=== PATIENT | male | born 1955 | race Caucasian/White ===

== ENCOUNTER 2019-11-26 07:23 | Outpatient (CLI) | payer MEDICARE, SELFPAY ==
[2019-11-26 07:41] LABS: Basophils Absolute Auto 0.03 K/mm3 (0.00-0.10); Basophils Percent Auto 0.5 % (0.0-1.0); Eosinophils Absolute Auto 0.19 K/mm3 (0.02-0.50); Eosinophils Percent Auto 3.1 % (1.0-6.0); Hematocrit 47.4 % (37.0-46.0); Hemoglobin 15.9 g/dL (12.4-15.3); Immature Granulocyte Absolute 0.01 K/mm3 (0.00-0.00); Immature Granulocyte Percent A 0.2 % (0.0-0.0); Lymphocytes Percent Auto 34.8 % (18.0-42.0); Mean Corpuscular HGB Conc 33.5 g/dL (32.0-36.0); Mean Corpuscular Hemoglobin 30.2 pg (27.0-31.0); Mean Corpuscular Volume 89.9 fL (78.0-102.0); Mean Platelet Volume 9.7 fl (8.7-11.0); Monocytes Absolute Auto 0.68 K/mm3 (0.10-0.90); Monocytes Percent Auto 11.3 % (2.0-11.0); Neutrophils Percent Auto 50.1 % (50.0-70.0); Platelet Count Result 315 K/mm3 (150-420); Red Blood Count 5.27 M/mm3 (4.70-6.10); Red Cell Distribution Width 13.1 % (11.6-14.4)
[2019-11-26 07:42] LABS: Add Urine Microscopic? NO; Appearance Urine Clear (Clear); Bilirubin Urine Negative (Negative); Blood Urine Negative (Negative); Color Urine Yellow (Yellow); Glucose Urine UA Negative (Negative); Ketones Urine Negative (Negative); Leukocyte Esterase Ur Negative (Negative); Nitrate Urine Negative (Negative); Protein Urine Negative (Negative); Urobilinogen Urine 0.2 mg/dL (0.2-1.0)
[2019-11-26 09:01] LABS: Alanine Aminotransferase 44 U/L (16-63); Albumin Level 3.9 g/dL (3.4-5.0); Alkaline Phosphatase 41 U/L (46-116); Anion Gap 9.3 mmol/L (7-16); Aspartate Amino Transferase 22 U/L (15-37); Bilirubin,Total 0.8 mg/dL (0.00-1.00); Blood Urea Nitrogen 15 mg/dL (7-18); Calcium 8.9 mg/dL (8.5-10.1); Carbon Dioxide 31 mmol/L (21-32); Chloride 102 mmol/L (98-108); Cholesterol 184 mg/dL (0-200); Estimated Glomerular Filt Rate > 60; Glucose 96 mg/dL (70-99); HDL Direct 63 mg/dL (40-60); LDL Cholesterol Calculated 104 mg/dL (<130); Osmolality Calculated 286 mOsm/kg (285-295); Potassium 4.3 mmol/L (3.5-5.1); Sodium 138 mmol/L (136-145); Thyroid Stimulating Hormone 1.79 uIU/mL (0.36-3.74); Triglycerides 85 mg/dL (0-150)
== END 2019-11-26 07:24 | disposition home or self-care (01) ==
PROVIDERS: PCP Internal Medicine; Visit Provider Internal Medicine
DX: R00.1 Bradycardia, unspecified (principal); E78.5 Hyperlipidemia, unspecified
CPT/HCPCS: 36415; 80053; 80061; 81003; 84443; 85025

== ENCOUNTER 2020-01-14 11:32 | Outpatient (CLI) | payer MEDICARE, SELFPAY ==
--- NOTE | ~2020-01-14 | XR_ITS ---
EXAMINATION: XR shoulder LT min 2V DATE: 01/14/2020 12:06 INDICATION: Left shoulder pain. TECHNIQUE: 4 views of left shoulder were obtained. COMPARISON: None. FINDINGS: Bone alignment is normal. No fracture. There is moderate osteoarthritis of glenohumeral artur nt and acromioclavicular joint. IMPRESSION: 1. Polyarticular osteoarthritis. Reviewed, dictated and finalized at location A.
--- NOTE | ~2020-01-14 | XR_ITS ---
XR_CERV2-3V_CR DATE: 01/14/2020 12:06 INDICATION: Left arm pain. Anterior shoulder lump. TECHNIQUE: AP, lateral, open-mouth views COMPARISON: None FINDINGS: Normal alignment of the cervical spine. C1 and C2 are normally aligned and the odontoid pro cess is intact. No fracture or dislocation, locked facet or prevertebral soft tissue swelling. There is moderately prominent degenerative disc disease at C5-6 and C6-7. There is uncovertebral join t spurring at the same levels. There is degenerative change at the apophyseal joints at multiple leve ls. IMPRESSION: Degenerative disc disease and uncovertebral joint spurring at C5-6 and C6-7 Reviewed, dictated and finalized at [facility]. Reviewed, dictated and finalized at location A.
--- NOTE | ~2020-01-14 | US_ITS ---
EXAMINATION: US soft tissue UE LT DATE: 01/14/2020 11:58 INDICATION: Left anterior shoulder lump. TECHNIQUE: Multiple grayscale and Doppler ultrasound images of the left upper limb were obtained. COMPARISON: Chest CT 10/10/2018 FINDINGS: There is a 6.3 x 2.9 x 3.5 cm mass of heterogeneous echogenicity anterior to left shoulder. IMPRESSION: 1. 6.3 cm mass anterior to left shoulder without correlate on the prior chest CT. This finding may be a lipoma or other benign or malignant mass. MRI without and with contrast or CT with contrast is rec ommended. Reviewed, dictated and finalized at location A. IMPRESSION: 1. 6.3 cm mass anterior to left shoulder without correlate on the prior chest C T. This finding may be a lipoma or other benign or malignant mass. MRI without and with contrast or CT with contrast is recommended.
== END 2020-01-14 11:33 | disposition home or self-care (01) ==
LOC: CHSIMG 11:35
PROVIDERS: PCP Internal Medicine; Visit Provider Internal Medicine
DX: M79.602 Pain in left arm (principal); R22.32 Localized swelling, mass and lump, left upper limb
CPT/HCPCS: 72040; 73030; 76882

== ENCOUNTER 2020-01-15 08:21 | Outpatient (CLI) | payer MEDICARE, SELFPAY ==
[2020-01-15 08:38] LABS: Estimated Glomerular Filt Rate 59
== END 2020-01-15 08:22 | disposition home or self-care (01) ==
LOC: CHSLAB 08:22
PROVIDERS: PCP Internal Medicine; Visit Provider Internal Medicine
DX: R22.32 Localized swelling, mass and lump, left upper limb (principal)
CPT/HCPCS: 99199

== ENCOUNTER 2020-01-18 08:17 | Outpatient (CLI) | payer MEDICARE, SELFPAY ==
--- NOTE | ~2020-01-18 | MR_ITS ---
EXAMINATION: MR shoulder LT wo/w con DATE: 01/18/2020 09:36 INDICATION: Left shoulder mass TECHNIQUE: Magnetic resonance imaging (MRI) of the left shoulder was performed without and with 15 mL Multihance intravenous contrast. Sequences included axial PD-weighted FS FSE, coronal oblique PD-reji ghted FS FSE, coronal oblique T2-weighted FS FSE, sagittal T2-weighted FS FSE, and sagittal T1-weight ed SE. Postcontrast axial and coronal T1-weighted FSE sequences were also obtained. COMPARISON: None. FINDINGS: Coracoacromial arch: The acromion undersurface is normally curved in morphology (type I-II). Acromion also appears thin gutierrez ggesting prior acromioplasty. Mild acromioclavicular osteoarthritis with suggestion of prior resectio n of a portion of the distal clavicle. Rotator cuff: Supraspinatus and infraspinatus tendinopathy without discrete tear. Mild subscapularis tendinopathy w ithout discrete tear. The teres minor tendon is normal. Normal rotator cuff muscle bulk and signal. Biceps tendon, glenoid labrum and glenohumeral cartilage: Long head of the biceps tendon is normal. Minimal linear increased signal extending peripherally into the substance of the anterosuperior to superior glenoid labrum consistent with labral tear. There is however appears to be a suture anchor at the anterosuperior glenoid suggesting prior labral repair. The inferior labrum is small and partially replaced by small marginal osteophytes along the inferior glenoid. There are additional small marginal osteophytes along the inferomedial aspect of the humeral head. Partial-thickness cartilage loss with mild chondral surface regularity along the apex of the h umeral head. Additional partial thickness cartilage loss at the glenoid most prominent posterior infe riorly. Fluid: Physiologic amount of fluid in the glenohumeral joint and biceps tendon sheath. No loose osteochondra l bodies. No abnormal fluid signal in the subacromial/subdeltoid bursa to suggest bursitis. Bones/other: Bone alignment is normal. No fracture or pathologic marrow replacing process. There is a bilobed rela tively homogeneously T1 hyperintense fat saturating intramuscular lipoma, the largest portion located the central head of the deltoid muscle which extends 7.8 cm craniocaudally and measures approximatel y 4.4 x 2.9 cm in maximal transaxial dimensions. There is a contiguous smaller lobular component whic h extends posteriorly along the deep margin of the muscle belly which measures 4.4 cm proximal to dis ajit and 2.3 x 1.7 cm in maximal transaxial dimensions. Normal degree of a few thin internal enhancing septation/vessels. No solid enhancing soft tissue component. No abnormally enhancing lesions identif ied. IMPRESSION: 1. 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 2. Likely chronic repair of a prior tear at the anterosuperior glenoid labrum. 3. Mild glenohumeral osteoarthritis with likely chronic degeneration at the inferior glenoid. 4. Mild subscapularis, supraspinatus and infraspinatus tendinopathy without discrete tear. 5. Changes of likely prior acromioplasty and distal clavicle resection. Reviewed, dictated and finalized at location A. IMPRESSION: 1. 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 2. Likely chronic repair of a prior tear at the anterosuperior glenoid labrum. 3. Mild glenohumeral osteoarthritis with likely chronic degeneration at the inf erior glenoid. 4. Mild subscapularis, supraspinatus and infraspinatus tendinopathy without dis crete tear. 5. Changes of likely prior acromioplasty and distal clavicle resection.
== END 2020-01-18 08:18 | disposition home or self-care (01) ==
LOC: CHSIMG 08:18
PROVIDERS: PCP Internal Medicine; Visit Provider Internal Medicine
DX: R22.32 Localized swelling, mass and lump, left upper limb (principal)
CPT/HCPCS: 73223; A9577

== ENCOUNTER 2020-10-27 10:46 | Outpatient (CLI) | payer MEDICARE, SELFPAY ==
--- NOTE | 2020-10-27 11:30 | ECG_ITS ---
Measurements Intervals [place] Rate: 52 P: -16 WA: 205 QRS: 3 QRSD: 101 T: 12 QT: 429 QTc: 400 Interpretive Statements SINUS BRADYCARDIA BORDERLINE AV CONDUCTION DELAY INCOMPLETE RIGHT BUNDLE BRANCH BLOCK DELAYED PRECORDIAL R/S TRANSITION BASELINE WANDER- V3 BORDERLINE ECG Electronically Signed On 10-27-2020 11:38:33 CDT by Michael Issa D.O.
== END 2020-10-27 10:47 | disposition home or self-care (01) ==
LOC: ANHSURGERY 10:50
PROVIDERS: PCP Internal Medicine; Visit Provider Surgery
DX: K40.90 Unilateral inguinal hernia, without obstruction or gangrene, not specified as recurrent (principal); F17.210 Nicotine dependence, cigarettes, uncomplicated; Z01.818 Encounter for other preprocedural examination; I45.9 Conduction disorder, unspecified; I45.10 Unspecified right bundle-branch block
CPT/HCPCS: 36415; 86850; 86900; 86901; 93005

== ENCOUNTER → 2020-10-31 00:31 | Outpatient (CLI) | payer MEDICARE, SELFPAY ==
[2020-10-31 19:26] LABS: SARS-CoV-2 RNA PCR Negative
== END ==
PROVIDERS: PCP Internal Medicine; Visit Provider Surgery
DX: Z01.812 Encounter for preprocedural laboratory examination (principal); Z20.822 Contact with and (suspected) exposure to COVID-19
CPT/HCPCS: C9803; U0003; U0005

== ENCOUNTER 2020-11-03 00:26 | Day surgery (SDC) | payer MEDICARE, SELFPAY ==
[2020-10-26 08:24] VITALS: BMI 28.2
--- NOTE | 2020-11-02 13:23 | WPDANESEPPF ---
Anes - Initial Pre Proc Eval Procedure: Operation Date: 11/03/20 08:30 Proposed Procedures p Laparoscopic Right Inguinal Hernia Repair With Mesh, Da Henry Assisted - Randall Payne DO Date/Time: 11/02/20 13:23 Surgeon: Randall Payne DO Pre Op Diagnosis: Right inguinal Hernia Patient Data Age: 65 Gender: M Height: 1.85 m Weight: 97 kg Allergies Allergy/AdvReac Type Severity Reaction Status Date / Time No Known Allergies Allergy Verified 10/26/20 08:11 Home Medications Medication Instructions Recorded Confirmed Type sildenafil 100 mg tablet 100 mg PO DAILY PRN 07/20/20 10/26/20 History vit C 50 mg-E 15 unit-zinc cit 4.5 1 tablet PO DAILY 07/20/20 10/26/20 History mg-lutein 2.5 mg-zeaxan chew tablet acetaminophen [Tylenol] 500 mg PO ONCE PRN 10/26/20 10/26/20 History aspirin 650 mg PO BID PRN 10/26/20 10/26/20 History cholecalciferol (vitamin D3) 50 mcg PO DAILY 10/26/20 10/26/20 History cyanocobalamin (vitamin B-12) 1,000 mcg PO DAILY 10/26/20 10/26/20 History diclofenac sodium [Voltaren 2 g TOPICAL BID 10/26/20 10/26/20 History Arthritis Pain] gkzyaiy-jgfi-oupqu-oreg-capryl 500 mg PO DAILY 10/26/20 10/26/20 History vitamins-lipotropics 1 tablet PO TID 10/26/20 10/26/20 History [Lipo-Flavonoid Plus] Patient hx anesthesia problems: none Family hx anesthesia problems: none PMFSH Past Medical History Medical History History of prostate cancer Surgical History Surgical History History of back surgery History of prostatectomy History of shoulder surgery Family History Family History Father , age 62 Cirrhosis Gout Alcoholism Mother Hypertension Sibling Cerebral aneurysm Social History Social History Smoking packs per day: 1 Smoking cigarettes per day: 20.0 Years smoked: 20 Smoking pack-years: 20.00 Smoking status: Former smoker Tobacco type: cigarettes Smoking end date: 11/12/17 Additional smoking assessment comments: SMOKED OFF AND ON SINCE 13 YEAR OLD, QUIT COMPLETELY 2017 Alcohol intake: current Drinks per week: 12 Substance use: never Living arrangements: alone Spiritual care concerns: No Anes - Eval Final PreProcedure Day of Procedure 11/02/20 13:23 Patient weight: overweight Heart: regular rate and rhythm Lungs: clear to auscultation Airway: Mallampati scale class II Neurological: alert and oriented Last oral intake: >/= 8 hours ASA classification: II Anesthetic plan: proceed Anesthesia type and monitoring: general GIVS and standard monitoring Informed Consent: The patient's anesthetic plan and its attendant risks and benefits were discussed with the patient/family/POA. Questions were solicited and answers provided to the satisfaction of the patient/family/POA.
[2020-11-03] VITALS (9 sets, daily range): BP systolic 118–151; BP diastolic 61–80; PULSE 46–69; RESP 12–20; TEMP 36.1–36.2; O2SAT 96–100
--- NOTE | 2020-11-03 06:42 | PM.IMHP ---
H&P: HPI History of Present Illness Date/Time: 11/03/20 06:42 Chief Complaint: Right inguinal hernia Narrative: This is a 65-year-old man who presents for right inguinal hernia repair. He was seen back in July and reports no significant changes since last seen in office. Review of Systems Review of Systems: All systems reviewed & are unremarkable except as noted in HPI and below Constitutional: Constitutional: Denies chills, Denies fever(s), Denies headache(s) and Denies weight loss Eyes: Eyes: Denies change in vision ENT: Denies dizziness, Denies headache(s), Denies neck mass and Denies throat swelling Cardiovascular: Cardiovascular: Denies chest pain, Denies lightheadedness and Denies dyspnea Respiratory: Respiratory: Denies cough, Denies dyspnea and Denies wheezing Gastrointestinal: Gastrointestinal: Denies abdominal pain, Denies change in bowel habits, Denies nausea and Denies vomiting Genitourinary: Genitourinary: Denies hematuria and Denies dysuria Musculoskeletal: Musculoskeletal: Reports as per HPI Integumentary/Breasts: Skin/Breast: Reports as per HPI Neurologic: Denies dizziness and Denies headache(s) Allergic/Immunologic: Allergic/Immunologic: Denies throat swelling and Denies wheezing PMF Past Medical History Medical History History of prostate cancer Surgical History Surgical History History of back surgery History of prostatectomy History of shoulder surgery Family History Family History Father , age 62 Cirrhosis Gout Alcoholism Mother Hypertension Sibling Cerebral aneurysm Social History Social History Smoking packs per day: 1 Smoking cigarettes per day: 20.0 Years smoked: 20 Smoking pack-years: 20.00 Smoking status: Former smoker Tobacco type: cigarettes Smoking end date: 11/12/17 Additional smoking assessment comments: SMOKED OFF AND ON SINCE 13 YEAR OLD, QUIT COMPLETELY 2017 Alcohol intake: current Drinks per week: 12 Substance use: never Living arrangements: alone Spiritual care concerns: No Meds Home Medications and Allergies Home Medications Medication Instructions Recorded Confirmed Type sildenafil 100 mg tablet 100 mg PO DAILY PRN 03/08/21 06/14/21 History vit C 50 mg-E 15 unit-zinc cit 4.5 1 tablet PO DAILY 07/20/20 10/26/20 History mg-lutein 2.5 mg-zeaxan chew tablet acetaminophen [Tylenol] 500 mg PO ONCE PRN 10/26/20 10/26/20 History aspirin 650 mg PO BID PRN 10/26/20 10/26/20 History cholecalciferol (vitamin D3) 50 mcg PO DAILY 10/26/20 10/26/20 History cyanocobalamin (vitamin B-12) 1,000 mcg PO DAILY 10/26/20 10/26/20 History diclofenac sodium [Voltaren 2 g TOPICAL BID 10/26/20 10/26/20 History Arthritis Pain] kilytto-mejm-eoope-oreg-capryl 500 mg PO DAILY 10/26/20 10/26/20 History vitamins-lipotropics 1 tablet PO TID 10/26/20 10/26/20 History [Lipo-Flavonoid Plus] Allergies Allergy/AdvReac Type Severity Reaction Status Date / Time No Known Allergies Allergy Verified 10/26/20 08:11 Exam Const: General: no acute distress and alert Orientation/consciousness: patient oriented x3 HENMT: Head: normocephalic and atraumatic Ears: hearing grossly normal bilaterally General nose exam: Normal nares present Mouth: Yes Normal oral and palatal mucosa present Eyes: Periorbital: periorbital findings normal Sclera: sclerae normal EOM: EOMs intact bilaterally Neck: Neck: normal visual inspection, no lymphadenopathy and trachea midline Chest: Chest palpation & inspection: normal inspection of the chest Resp: Effort & Inspection: normal respiratory effort Auscultation: clear to auscultation bilaterally Cardio: Jugular venous distension: no JVD Rate: regular rate Rhythm: regula
--- NOTE | 2020-11-03 06:44 | WPDHPUPDATE1 ---
History and Physical Update Update Date/Time: 11/03/20 06:44 History and Physical has been reviewed, including an updated exam of the patient. There are NO changes in the patient's condition. Risks, benefits, and alternatives have been discussed and questions answered. Patient agrees to proceed with procedure.
[2020-11-03] MEDS: KETOROLAC 15 MG/ML VIAL (*BKC) IV PUSH (07:02)
[2020-11-03] MEDS: ACETAMINOPHEN 500 MG TABLET 1000 MG PO (07:02)
[2020-11-03] MEDS: LACTATED RINGERS 1,000 ML 30 ML IV CONT ×2 (07:07→09:01)
[2020-11-03] MEDS: ceFAZolin 2 GM/D5W 50 ML 2 GM/50 ML BAG IVPB (07:22)
[2020-11-03] MEDS: BUPIVACAINE/EPINEPHRINE 0.5% 10 ML VIAL 30 ML INFILTRATE (07:50)
--- NOTE | 2020-11-03 08:09 | SUR.OPER ---
prior to induction noted left upper front tooth with small medial chip lower tooth aspect.
--- NOTE | 2020-11-03 08:53 | W.PM.PROC2 ---
Procedure Note - Detailed Date of Procedure 11/03/20 Pre-op Diagnosis Right inguinal Hernia Post-op Diagnosis same (Direct right inguinal hernia) Procedure Performed Laparoscopic right inguinal hernia repair with mesh, da Henry assisted Surgeon Randall Payne DO Anesthesia general and local (0.5% bupivacaine with epinephrine) Indications This is a 65-year-old man who presents with a right inguinal hernia. He 1st noticed this about 6 months ago as a bulge but was not having any significant pain with this. The bulge had slightly increased in size, therefore he presented for evaluation. He was found to have a reducible right inguinal hernia on exam. There was no evidence of left inguinal hernia. He does have a history of robotic prostatectomy. Discussions were made with the patient about treatment options and decision was made to proceed with laparoscopic right inguinal hernia repair with mesh, de Henry assisted. Findings Laparoscopic right inguinal hernia repair was performed. The patient was found to have a direct right inguinal hernia. The hernia sac was fairly scarred in due to his prior robotic prostatectomy. The hernia sac was carefully reduced and a preperitoneal pocket was created for mesh placement. A Pro Hand Paint Mixer 15 cm x 10 cm mesh was placed within the preperitoneal pocket overlying the entire right myopectineal orifice. No specimens were obtained for pathology. There was no evidence of a left inguinal hernia. Description of Procedure Procedure as well as risks, benefits, and alternatives were discussed with the patient. Written consent was obtained and placed in chart prior to procedure. Patient was brought back to surgical suite. He was placed supine on operating table. Time-out was done to confirm patient and procedure. he was then intubated by Anesthesia Department. his abdomen was prepped and draped in sterile fashion using chlorhexidine prep. 0.5% bupivacaine with epinephrine was infiltrated at each location for incision. An 8 mm incision was made in the left lateral abdomen, and a 5 mm Optiview trocar was advanced through the abdominal layers under direct visualization. Once inside the abdominal cavity, carbon dioxide insufflation was used to create a pneumoperitoneum. A camera was inserted and the abdominal cavity was inspected. The patient was placed in slight Trendelenburg position. An 8 millimeter incision was made on the right lateral abdomen and an 8 millimeter trocar was inserted under direct visualization. Another 8 millimeter incision was made just superior to the umbilicus and an 8 millimeter trocar was inserted under direct visualization. The 5 mm port was then removed and this was replaced with another 8 mm robotic port. The robotic arms were brought up to the patient's bedside and secured to the ports. The camera and instruments were inserted. I then moved over to the robotic console and took control of the camera and instruments. After careful inspection of the abdominal cavity, I began scoring the peritoneum along the right lower quadrant using scissors with electrocautery. The preperitoneal plane was entered and this was carefully dissected caudally along the inferior epigastric vessels. Careful dissection with scissors with electrocautery and blunt dissection was used to continue this dissection. I dissected far enough laterally to allow for mesh placement, and also dissected medially to identify the pubic arch and Paco's ligament. The hernia sac was identified and carefully dissected posteriorly. The cord contents were also identified and the peritoneum was carefully dissected far enough posteriorly to allow for mesh placement. Once an adequate pocket was created, I then placed the mesh within the preperitoneal pocket and carefully unfolded it. The mesh was centered on the hernia defect with adequate overlap circumferentially. The inferior edge of the mesh was inspected to ensure that it was far zulay
--- NOTE | 2020-11-03 10:45 | SUR.PHASEII ---
1045 - dr. mckeon in room talking with pt
== END 2020-11-03 10:55 | disposition home or self-care (01) ==
PROVIDERS: PCP Internal Medicine; Visit Provider Surgery
PROC: 8E0Y4CZ Robotic Assisted Procedure of Lower Extremity, Percutaneous Endoscopic Approach (ICD-10-PCS; CPT 49650; principal; 2020-11-03 08:30)
DX: K40.90 Unilateral inguinal hernia, without obstruction or gangrene, not specified as recurrent (principal); Z85.46 Personal history of malignant neoplasm of prostate; Z87.891 Personal history of nicotine dependence
CPT/HCPCS: 49650; S2900; A9270; C1781; J0690; J1100; J1170; J1885; J2250; J2405; J2704; J2710; J3010; J7030; J7120

== ENCOUNTER 2020-12-30 12:03 | Outpatient (CLI) | payer MEDICARE, SELFPAY ==
[2020-12-30 13:13] LABS: SARS-CoV-2 RNA PCR Positive (Negative)
== END 2020-12-30 12:04 | disposition home or self-care (01) ==
LOC: CHSLAB 12:05
PROVIDERS: PCP Internal Medicine; Visit Provider Internal Medicine
DX: U07.1 COVID-19 (principal)
CPT/HCPCS: C9803; U0003; U0005

== ENCOUNTER 2021-01-26 07:37 | Outpatient (CLI) | payer MEDICARE, SELFPAY ==
[2021-01-26 07:48] LABS: Basophils Absolute Auto 0.01 K/mm3 (0.00-0.10); Basophils Percent Auto 0.2 % (0.0-1.0); Eosinophils Absolute Auto 0.19 K/mm3 (0.02-0.50); Eosinophils Percent Auto 3.6 % (1.0-6.0); Hematocrit 45.9 % (37.0-46.0); Hemoglobin 15.4 g/dL (12.4-15.3); Immature Granulocyte Absolute 0.02 K/mm3 (0.00-0.00); Immature Granulocyte Percent A 0.4 % (0.0-0.0); Lymphocytes Percent Auto 30.1 % (18.0-42.0); Mean Corpuscular HGB Conc 33.6 g/dL (32.0-36.0); Mean Corpuscular Hemoglobin 30.3 pg (27.0-31.0); Mean Corpuscular Volume 90.4 fL (78.0-102.0); Mean Platelet Volume 9.3 fl (8.7-11.0); Monocytes Absolute Auto 0.55 K/mm3 (0.10-0.90); Monocytes Percent Auto 10.4 % (2.0-11.0); Neutrophils Absolute Auto 2.9 K/mm3 (1.7-7.2); Neutrophils Percent Auto 55.3 % (50.0-70.0); Platelet Count Result 336 K/mm3 (150-420); Red Blood Count 5.08 M/mm3 (4.70-6.10); Red Cell Distribution Width 13.8 % (11.6-14.4); White Blood Count 5.3 K/mm3 (4.8-10.8)
[2021-01-26 07:49] LABS: Add Urine Microscopic? NO; Appearance Urine Clear (Clear); Bilirubin Urine Negative (Negative); Blood Urine Negative (Negative); Color Urine Yellow (Yellow); Glucose Urine UA Negative (Negative); Ketones Urine Negative (Negative); Leukocyte Esterase Ur Negative (Negative); Nitrate Urine Negative (Negative); Protein Urine Negative (Negative); Urobilinogen Urine 0.2 mg/dL (0.2-1.0); pH Urine 8.5 (5.0-8.0)
[2021-01-26 09:06] LABS: Alanine Aminotransferase 35 U/L (16-63); Alkaline Phosphatase 53 U/L (46-116); Anion Gap 7 mmol/L (8-16); Aspartate Amino Transferase 17 U/L (15-37); Bilirubin,Total 0.7 mg/dL (0.00-1.00); Blood Urea Nitrogen 13 mg/dL (7-18); Calcium 9.2 mg/dL (8.5-10.1); Carbon Dioxide 33 mmol/L (21-32); Chloride 104 mmol/L (98-108); Cholesterol 187 mg/dL (0-200); Estimated Glomerular Filt Rate > 60; Glucose 92 mg/dL (70-99); HDL Direct 69 mg/dL (40-60); LDL Cholesterol Calculated 107 mg/dL (<130); Osmolality Calculated 298 mOsm/kg (285-295); Potassium 4.9 mmol/L (3.5-5.1); Sodium 144 mmol/L (136-145); Thyroid Stimulating Hormone 1.48 uIU/mL (0.36-3.74); Total Protein 7.3 g/dL (6.4-8.2); Triglycerides 53 mg/dL (0-150)
[2021-01-26 09:19] LABS: CRP < 0.2 mg/dL (0.0-0.9)
== END 2021-01-26 07:38 | disposition home or self-care (01) ==
LOC: CHSLAB 07:40
PROVIDERS: PCP Internal Medicine; Visit Provider Internal Medicine
DX: E78.5 Hyperlipidemia, unspecified (principal); M25.50 Pain in unspecified joint; Z00.00 Encounter for general adult medical examination without abnormal findings
CPT/HCPCS: 36415; 80053; 80061; 81003; 84443; 85025; 86140

== ENCOUNTER 2021-01-27 08:46 | Outpatient (CLI) | payer MEDICARE, SELFPAY ==
--- NOTE | ~2021-01-27 | CT_ITS ---
EXAMINATION: CT lung screening DATE: 01/27/2021 09:16 INDICATION: Personal history of tobacco dependence, prior smoker with 35 pack year history TECHNIQUE: Computed tomography (CT) of the chest was performed without intravenous contrast. The dose -length product (DLP) was 198.14 mGy-cm. 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 COMPARISON: 10/10/2018 FINDINGS: There is mild emphysema. No suspicious pulmonary nodules are identified. There is a stable 5 mm nodule of the left lower lobe near the lateral costophrenic angle on image 103. The lungs are fr ee of acute opacities. There is no pleural effusion or pneumothorax. 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 There is mild thoracic spondylosis. IMPRESSION: 1. Lung-RADS category 2: Benign appearance or behavior. Continue annual screening with noncontrast lo w-dose chest CT in 12 months. Reviewed, dictated and finalized at location A. IMPRESSION: 1. Lung-RADS category 2: Benign appearance or behavior. Continue annual screeni ng with noncontrast low-dose chest CT in 12 months.
== END 2021-01-27 08:47 | disposition home or self-care (01) ==
LOC: CHSIMG 08:48
PROVIDERS: PCP Internal Medicine; Visit Provider Internal Medicine
DX: Z12.2 Encounter for screening for malignant neoplasm of respiratory organs (principal); Z87.891 Personal history of nicotine dependence
CPT/HCPCS: 71271

== ENCOUNTER 2022-02-01 07:31 | Outpatient (CLI) | payer MEDICARE, OTHER, SELFPAY ==
[2022-02-01 07:54] LABS: Add Urine Microscopic? NO; Appearance Urine Clear (Clear); Basophils Absolute Auto 0.03 K/mm3 (0.00-0.10); Basophils Percent Auto 0.6 % (0.0-1.0); Bilirubin Urine Negative (Negative); Blood Urine Negative (Negative); Color Urine Yellow (Yellow); Eosinophils Absolute Auto 0.18 K/mm3 (0.02-0.50); Eosinophils Percent Auto 3.4 % (1.0-6.0); Glucose Urine UA Negative (Negative); Hematocrit 46.3 % (37.0-46.0); Immature Granulocyte Absolute 0.01 K/mm3 (0.00-0.00); Immature Granulocyte Percent A 0.2 % (0.0-0.0); Ketones Urine Negative (Negative); Leukocyte Esterase Ur Negative (Negative); Lymphocytes Absolute Auto 1.69 K/mm3 (1.10-4.50); Lymphocytes Percent Auto 32.1 % (18.0-42.0); Mean Corpuscular HGB Conc 32.4 g/dL (32.0-36.0); Mean Corpuscular Hemoglobin 29.4 pg (27.0-31.0); Mean Corpuscular Volume 90.6 fL (78.0-102.0); Mean Platelet Volume 9.9 fl (8.7-11.0); Monocytes Absolute Auto 0.66 K/mm3 (0.10-0.90); Monocytes Percent Auto 12.5 % (2.0-11.0); Neutrophils Absolute Auto 2.7 K/mm3 (1.7-7.2); Neutrophils Percent Auto 51.2 % (50.0-70.0); Nitrate Urine Negative (Negative); Platelet Count Result 327 K/mm3 (150-420); Protein Urine Negative (Negative); Red Blood Count 5.11 M/mm3 (4.70-6.10); Specific Grav Ur 1.015 (1.010-1.020); Urobilinogen Urine 0.2 mg/dL (0.2-1.0); White Blood Count 5.3 K/mm3 (4.8-10.8)
[2022-02-01 08:48] LABS: Alanine Aminotransferase 33 U/L (16-63); Alkaline Phosphatase 55 U/L (46-116); Anion Gap 4 mmol/L (8-16); Aspartate Amino Transferase 20 U/L (15-37); Bilirubin,Total 0.7 mg/dL (0.00-1.00); Blood Urea Nitrogen 15 mg/dL (7-18); Calcium 9.1 mg/dL (8.5-10.1); Carbon Dioxide 31 mmol/L (21-32); Chloride 105 mmol/L (98-108); Cholesterol 192 mg/dL (0-200); Estimated Glomerular Filt Rate > 60; Glucose 101 mg/dL (70-99); HDL Direct 71 mg/dL (40-60); LDL Cholesterol Calculated 110 mg/dL (<130); Osmolality Calculated 290 mOsm/kg (285-295); Potassium 4.5 mmol/L (3.5-5.1); Sodium 140 mmol/L (136-145); Thyroid Stimulating Hormone 1.24 uIU/mL (0.36-3.74); Total Protein 7.3 g/dL (6.4-8.2); Triglycerides 53 mg/dL (0-150)
== END 2022-02-01 07:32 | disposition home or self-care (01) ==
LOC: CHSLAB 07:36
PROVIDERS: PCP Internal Medicine; Visit Provider Internal Medicine
DX: E78.5 Hyperlipidemia, unspecified (principal); Z00.00 Encounter for general adult medical examination without abnormal findings
CPT/HCPCS: 36415; 80053; 80061; 81003; 84443; 85025

== ENCOUNTER 2022-03-09 07:18 | Outpatient (CLI) | payer MEDICARE, OTHER, SELFPAY ==
--- NOTE | ~2022-03-09 | CT_ITS ---
EXAMINATION: CT lung screening DATE: 03/09/2022 07:39 INDICATION: History of nicotine dependence. Lung cancer screening. TECHNIQUE: Computed tomography (CT) of the chest was performed without intravenous contrast. The dose -length product was 236.48 mGy-cm. Automated exposure control and iterative reconstruction technique were employed. COMPARISON: CT dated 01/27/2021 FINDINGS: Heart size normal. No significant pleural or pericardial effusion. Mild mediastinal lymphad enopathy, unchanged, likely reactive. Stable 5 mm left lower lobe nodule at the lateral costophrenic recess. Mild emphysema. There is focal atelectasis/scarring in the right upper lobe posteriorly. No p eripheral consolidation. No endobronchial lesions. No pneumothorax. Mild thoracic spondylosis. IMPRESSION: 1. Lung-RADS category 2: Benign appearance or behavior. Continue annual screening with noncontrast lo w-dose chest CT in 12 months. Reviewed, dictated and finalized at location B. IMPRESSION: 1. Lung-RADS category 2: Benign appearance or behavior. Continue annual screeni ng with noncontrast low-dose chest CT in 12 months.
== END 2022-03-09 07:19 | disposition home or self-care (01) ==
LOC: CHSIMG 07:19
PROVIDERS: PCP Internal Medicine; Visit Provider Internal Medicine
DX: Z12.2 Encounter for screening for malignant neoplasm of respiratory organs (principal); Z87.891 Personal history of nicotine dependence
CPT/HCPCS: 71271

== ENCOUNTER 2023-03-08 06:11 | Day surgery (SDC) | payer MEDICARE, OTHER, SELFPAY ==
[2023-03-01 10:07] VITALS: BMI 30.5
[2023-03-01 13:10] VITALS: BMI 30.2
[2023-03-08 06:43] VITALS: BMI 30.6
[2023-03-08 06:44] VITALS: BP 142/84; PULSE 57; RESP 18; TEMP 36.6; O2SAT 97
[2023-03-08] MEDS: LACTATED RINGERS 1,000 ML 150 ML IV CONT (07:23)
--- NOTE | 2023-03-08 07:24 | WPDANESEPPF ---
Anes - Initial Pre Proc Eval Procedure: Operation Date: 03/08/23 08:00 Proposed Procedures p Screening Colonoscopy - Randall Payne DO Date/Time: 03/08/23 07:24 Surgeon: Randall Payne DO Pre Op Diagnosis: Neoplasm screening Patient Data Age: 68 Gender: M Height: 1.85 m Weight: 105.3 kg Last Vital Signs Temp 36.6 C 03/08/23 06:44 Pulse 57 L 03/08/23 06:44 Resp 18 03/08/23 06:44 BP 142/84 H 03/08/23 06:44 Pulse Ox 97 03/08/23 06:44 O2 Del Method Room Air 03/08/23 06:44 Allergies Allergy/AdvReac Type Severity Reaction Status Date / Time No Known Allergies Allergy Verified 03/08/23 06:34 Home Medications Medication Instructions Recorded Confirmed Type sildenafil 100 mg tablet (Viagra) 100 mg PO DAILY PRN Erectile 07/20/20 03/08/23 History Dysfunction vit C 50 mg-E 15 unit-zinc cit 4.5 1 tablet PO DAILY 07/20/20 03/08/23 History mg-lutein 2.5 mg-zeaxan chew tablet ([facility]) acetaminophen 325 mg tablet 500 mg PO ONCE PRN Pain 10/26/20 03/08/23 History (Tylenol) aspirin 325 mg tablet,delayed 650 mg PO BID PRN Pain 10/26/20 03/08/23 History release cholecalciferol (vitamin D3) 50 50 mcg PO DAILY 10/26/20 03/08/23 History mcg (2,000 unit) tablet cyanocobalamin (vitamin B-12) 1,000 mcg PO DAILY 10/26/20 03/08/23 History 1,000 mcg tablet diclofenac sodium 1 % topical gel 2 g topical BID 10/26/20 03/08/23 History (Voltaren Arthritis Pain) mfgsmau-qkpl-gzddl-oreg-capryl 500 mg PO DAILY 10/26/20 03/08/23 History Patient hx anesthesia problems: none Family hx anesthesia problems: none Results Review: All pre-operative results and documents have been reviewed as part of the pre-operative evaluation. [facility], [facility] Past Medical History Medical History History of prostate cancer Surgical History Surgical History H/O right inguinal hernia repair 11/03/20 lap RIH repair w/mesh davinci assisted History of back surgery History of prostatectomy History of shoulder surgery Family History Family History Father , age 62 Cirrhosis Gout Alcoholism Mother Hypertension Sibling Cerebral aneurysm Social History Social History Smoking packs per day: 1 Smoking cigarettes per day: 20.0 Years smoked: 20 Smoking pack-years: 20.00 Smoking status: Former smoker Tobacco type: cigarettes Smoking end date: 11/12/17 Additional smoking assessment comments: SMOKED OFF AND ON SINCE 13 YEAR OLD, QUIT COMPLETELY 2017 Alcohol intake: current Drinks per week: 12 Alcohol use details: social Substance use: never Living arrangements: alone Occupation/Education: retired Spiritual care concerns: No Anes - Eval Final PreProcedure Day of Procedure 03/08/23 07:24 Patient weight: obese Heart: regular rate and rhythm Lungs: clear to auscultation Airway: Mallampati scale class II Neurological: alert and oriented Last oral intake: >/= 8 hours ASA classification: III Emergent: no Anesthetic plan: proceed Anesthesia type and monitoring: general GIVS and standard monitoring Results Review: All pre-operative results and documents have been reviewed as part of the pre-operative evaluation. Informed Consent: The patient's anesthetic plan and its attendant risks and benefits were discussed with the patient/family/POA. Questions were solicited and answers provided to the satisfaction of the patient/family/POA.
--- NOTE | 2023-03-08 07:34 | PM.IMHP ---
H&P: HPI History of Present Illness Date/Time: 03/08/23 07:34 Chief Complaint: screening for colon cancer Narrative: 68 yo man present for colonoscopy. Last colonoscopy about 10 years ago. He denies any hematochezia or melena. Denies fam hx colon cancer. Review of Systems Review of Systems: All systems reviewed & are unremarkable except as noted in HPI and below Constitutional: Constitutional: Denies chills, Denies fever(s), Denies headache(s) and Denies weight loss Eyes: Eyes: Denies change in vision ENT: Denies dizziness, Denies headache(s), Denies neck mass and Denies throat swelling Cardiovascular: Cardiovascular: Denies chest pain, Denies lightheadedness and Denies dyspnea Respiratory: Respiratory: Denies cough, Denies dyspnea and Denies wheezing Gastrointestinal: Gastrointestinal: Denies abdominal pain, Denies change in bowel habits, Denies nausea and Denies vomiting Genitourinary: Genitourinary: Denies hematuria and Denies dysuria Musculoskeletal: Musculoskeletal: Reports as per HPI Integumentary/Breasts: Skin/Breast: Reports as per HPI Neurologic: Denies dizziness and Denies headache(s) Allergic/Immunologic: Allergic/Immunologic: Denies throat swelling and Denies wheezing [facility] Past Medical History Medical History History of prostate cancer Surgical History Surgical History H/O right inguinal hernia repair 11/03/20 lap RIH repair w/mesh davinci assisted History of back surgery History of prostatectomy History of shoulder surgery Family History Family History Father , age 62 Cirrhosis Gout Alcoholism Mother Hypertension Sibling Cerebral aneurysm Social History Social History Smoking packs per day: 1 Smoking cigarettes per day: 20.0 Years smoked: 20 Smoking pack-years: 20.00 Smoking status: Former smoker Tobacco type: cigarettes Smoking end date: 11/12/17 Additional smoking assessment comments: SMOKED OFF AND ON SINCE 13 YEAR OLD, QUIT COMPLETELY 2017 Alcohol intake: current Drinks per week: 12 Alcohol use details: social Substance use: never Living arrangements: alone Occupation/Education: retired Spiritual care concerns: No Meds Home Medications and Allergies Home Medications Medication Instructions Recorded Confirmed Type sildenafil 100 mg tablet (Viagra) 100 mg PO DAILY PRN Erectile 07/20/20 03/08/23 History Dysfunction vit C 50 mg-E 15 unit-zinc cit 4.5 1 tablet PO DAILY 07/20/20 03/08/23 History mg-lutein 2.5 mg-zeaxan chew tablet (QVPN) acetaminophen 325 mg tablet 500 mg PO ONCE PRN Pain 10/26/20 03/08/23 History (Tylenol) aspirin 325 mg tablet,delayed 650 mg PO BID PRN Pain 10/26/20 03/08/23 History release cholecalciferol (vitamin D3) 50 50 mcg PO DAILY 10/26/20 03/08/23 History mcg (2,000 unit) tablet cyanocobalamin (vitamin B-12) 1,000 mcg PO DAILY 10/26/20 03/08/23 History 1,000 mcg tablet diclofenac sodium 1 % topical gel 2 g topical BID 10/26/20 03/08/23 History (Voltaren Arthritis Pain) boeixsf-jsyw-frcie-oreg-capryl 500 mg PO DAILY 10/26/20 03/08/23 History Allergies Allergy/AdvReac Type Severity Reaction Status Date / Time No Known Allergies Allergy Verified 03/08/23 06:34 Vital Signs Vital Signs - 24 hr 03/08/23 06:44 Temperature 36.6 C Pulse Rate 57 L Respiratory Rate 18 Blood Pressure 142/84 H Pulse Oximetry 97 Oxygen Delivery Room Air Exam Const: General: no acute distress and alert Orientation/consciousness: patient oriented x3 HENMT: Head: normocephalic and atraumatic Ears: hearing grossly normal bilaterally Face/Nose/Sinus: Normal nares present Mouth: Yes Normal oral and palatal mucosa present Eyes: Periorbital: perio
[2023-03-08 08:38] VITALS: BP 118/70; PULSE 56; RESP 18; O2SAT 96
[2023-03-08 08:48] VITALS: BP 118/68; PULSE 51; RESP 18; O2SAT 98
--- NOTE | 2023-03-08 08:48 | WPDANESPN ---
Anes - Prog Note Post-Op Date/Time: 03/08/23 08:48 Cardiovascular status: normal Respiratory status: normal Airway patency: baseline Mental status: baseline Post-Op hydration status: normal Vital Signs: Last Vital Signs Temp 36.6 C 03/08/23 06:44 Pulse 56 L 03/08/23 08:38 Resp 18 03/08/23 08:38 BP 118/70 03/08/23 08:38 Pulse Ox 96 03/08/23 08:38 O2 Del Method Room Air 03/08/23 08:38 Pain Score (VAS): 0/10 I/O: Intake & Output 03/07/23 03/08/23 03/08/23 23:59 07:59 15:59 Intake Total 500 Balance 500 Patient Feedback: Patient satisfied with anesthetic care.
[2023-03-08 08:58] VITALS: BP 135/98; PULSE 54; RESP 18; O2SAT 99
== END 2023-03-08 09:10 | disposition home or self-care (01) ==
PROVIDERS: PCP Internal Medicine; Visit Provider Surgery
PROC: 0DJD8ZZ Inspection of Lower Intestinal Tract, Via Natural or Artificial Opening Endoscopic (ICD-10-PCS; CPT 45378; principal; 2023-03-08 08:00)
DX: Z12.11 Encounter for screening for malignant neoplasm of colon (principal); K57.30 Diverticulosis of large intestine without perforation or abscess without bleeding
CPT/HCPCS: G0121

== ENCOUNTER 2023-03-15 07:24 | Outpatient (CLI) | payer MEDICARE, OTHER, SELFPAY ==
--- NOTE | ~2023-03-15 | CT_ITS ---
EXAMINATION: CT lung screening DATE: 03/15/2023 07:44 INDICATION: Personal history of nicotine dependence TECHNIQUE: Computed tomography (CT) of the chest was performed without intravenous contrast. The dose -length product was 187.85 mGy-cm. COMPARISON: CT dated 03/09/2022 FINDINGS: The heart size normal. Stable mediastinal lymphadenopathy, likely reactive. No significant pleural or pericardial effusion. Minimal atherosclerosis. Upper abdomen is unremarkable. No endobronc hial lesions. No significant pleural or pericardial effusion. Stable 5 mm left lower lobe nodule at t he costophrenic recess, image 93. No new pulmonary nodules or masses.No focal airspace consolidation. No pneumothorax. No endobronchial lesions. Mild thoracic spondylosis. No focal lytic or blastic lesi ons. IMPRESSION: 1. Lung-RADS category 2: Benign appearance or behavior. Continue annual screening with noncontrast lo w-dose chest CT in 12 months. Reviewed, dictated and finalized at location B. IMPRESSION: 1. Lung-RADS category 2: Benign appearance or behavior. Continue annual screeni ng with noncontrast low-dose chest CT in 12 months.
== END 2023-03-15 07:25 | disposition home or self-care (01) ==
LOC: CHSIMG 07:26
PROVIDERS: PCP Internal Medicine; Visit Provider Internal Medicine
DX: Z12.2 Encounter for screening for malignant neoplasm of respiratory organs (principal); Z87.891 Personal history of nicotine dependence
CPT/HCPCS: 71271

== ENCOUNTER 2023-07-27 14:23 | Outpatient (RCR) | payer MEDICARE, OTHER, SELFPAY ==
--- NOTE | 2023-07-27 15:04 | OPREHPOC ---
Outpatient Therapy Plan of Care This is a Multidisciplinary Plan of Care that may contain components documented by all disciplines (PT, OT, and ST.) PT Problem 1 PT Problem #1 Knowledge Deficit PT Goal 1 Goal 1. patient verbalizes knowledge of plan to hold therapy and follow up in 1 month or sooner if pain /symptoms return. Target Visit 1 Progress Met
--- NOTE | 2023-07-27 15:05 | PTOPEVAL1 ---
Assessment and note entered by JT File, PT Evaluation Information Assessment Status Evaluation Diagnosis L arm pain Onset 05/20/23 Subjective Information patient reports he has been having pain in the L upper arm for a few months. he reports he saw the MD last week. he reports since seeing the MD, they pain has not been back. he reports he was given a prescription for steroids. 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 he has been doing so with no issues. he reports prior to last week, he was having issues with the L arm more in the evenings and worse with increased activity. he had surgery on the L shoulder to remove a non-cancerous tumor last year. he reports the pain was going up the arm from the triceps. he reports no symptoms into the shoulder/neck, and no symptoms into the hand. Reported Pain Level Pain Score 0: Self Report Assessment PT Clinical Summary mr. grande is a 68 yo man who presents to skilled PT services for evaluation of L arm pain. he presents with no pain and no symptoms today. he displays WFL cervical and bilateral shoulder rom, and good+ or better strength. patient was educated today that his chart will be held open for a month and to follow up with any return of symptoms /pain in that month. after 1 month, his chart will be DC'd if a new POC is not opened. Plan of Care Interventions Patient/Caregiver Educati Treatment Frequency and hold therapy. patient to follow up in the next Duration month if symptoms return. if after 1 month he has not returned and no new POC has been written then we will DC his chart. These treatments will address the objective and functional deficits as defined above. The patient will be advanced safely and appropriately in order for the patient to progress towards his/her prior level of function. Additional exercises will be introduced and as well as a comprehensive home exercise program upon discharge, if needed, ?to ensure carryover of functional gains achieved in the clinic. This treatment plan has been reviewed and agreement upon by the patient.
== END 2023-07-27 20:00 | disposition home or self-care (01) ==
LOC: CHSPT 14:23
PROVIDERS: Visit Provider Internal Medicine
DX: M79.602 Pain in left arm (principal); M54.12 Radiculopathy, cervical region
CPT/HCPCS: 97161

== ENCOUNTER 2024-02-21 07:05 | Outpatient (CLI) | payer MEDICARE, SELFPAY ==
[2024-02-21 07:29] LABS: Basophils Absolute Auto 0.02 K/mm3 (0.00-0.10); Basophils Percent Auto 0.4 % (0.0-1.0); Eosinophils Absolute Auto 0.14 K/mm3 (0.02-0.50); Eosinophils Percent Auto 2.6 % (1.0-6.0); Hematocrit 48.7 % (37.0-46.0); Hemoglobin 16.2 g/dL (12.4-15.3); Immature Granulocyte Absolute 0.01 K/mm3 (0.00-0.00); Immature Granulocyte Percent A 0.2 % (0.0-0.0); Lymphocytes Absolute Auto 1.79 K/mm3 (1.10-4.50); Mean Corpuscular HGB Conc 33.3 g/dL (32-36); Mean Corpuscular Hemoglobin 29.1 pg (27.0-31.0); Mean Corpuscular Volume 87.6 fL (78.0-102.0); Mean Platelet Volume 9.7 fl (8.7-11.0); Monocytes Absolute Auto 0.64 K/mm3 (0.10-0.90); Monocytes Percent Auto 11.8 % (2.0-11.0); Neutrophils Absolute Auto 2.83 K/mm3 (1.70-7.20); Platelet Count Result 349 K/mm3 (150-420); Red Blood Count 5.56 M/mm3 (4.70-6.10); Red Cell Distribution Width 13.8 % (11.6-14.4); White Blood Count 5.4 K/mm3 (4.8-10.8)
[2024-02-21 08:35] LABS: Alanine Aminotransferase 43 U/L (16-63); Albumin Level 3.9 g/dL (3.4-5.0); Alkaline Phosphatase 65 U/L (46-116); Anion Gap 5 mmol/L (4-12); Aspartate Amino Transferase 26 U/L (15-37); Blood Urea Nitrogen 17 mg/dL (7-18); Calcium 9.2 mg/dL (8.5-10.1); Carbon Dioxide 32 mmol/L (21-32); Chloride 103 mmol/L (98-108); Cholesterol 191 mg/dL (0-200); Estimated Glomerular Filt Rate > 60; Glucose 99 mg/dL (70-99); HDL Direct 65 mg/dL (40-60); LDL Cholesterol Calculated 114 mg/dL (<130); Osmolality Calculated 291 mOsm/kg (285-295); Potassium 4.7 mmol/L (3.5-5.1); Sodium 140 mmol/L (136-145); Thyroid Stimulating Hormone 1.82 uIU/mL (0.36-3.74); Total Protein 7.4 g/dL (6.4-8.2); Triglycerides 62 mg/dL (0-150)
== END 2024-02-21 07:06 | disposition home or self-care (01) ==
PROVIDERS: PCP Internal Medicine; Visit Provider Internal Medicine
DX: R53.83 Other fatigue (principal); E78.5 Hyperlipidemia, unspecified
CPT/HCPCS: 36415; 80053; 80061; 84443; 85025

== ENCOUNTER 2024-03-18 07:21 | Outpatient (CLI) | payer MEDICARE, OTHER, SELFPAY ==
--- NOTE | ~2024-03-18 | CT_ITS ---
CT Scan of the Chest without Contrast: Clinical Indication: Lung cancer screening, nicotine dependence Technique: Contiguous sections were acquired throughout the chest without intravenous contrast. Dose reduction technique was used on this scan by utilizing automated exposure control and iterative recon struction technique. The dose-length product (DLP) was 224.29 mGy-cm. COMPARISON: 03/15/2023 Findings: There is no evidence of any significant mediastinal, hilar or axillary lymphadenopathy. The mediastin al soft tissues appear normal. There is no evidence of pleural or pericardial effusion. Stable 5 mm nodule at the extreme left lung base ((axial image 91). Images through the upper abdomen reveal no abnormalities. Impression: Lung RADS 2: Benign appearance. 12 month follow-up screening CT advised. Reviewed, dictated and finalized at location . INIST SUPERVISOR Impression: Lung RADS 2: Benign appearance. 12 month follow-up screening CT advised.
== END 2024-03-18 07:22 | disposition home or self-care (01) ==
LOC: CHSIMG 07:23
PROVIDERS: PCP Internal Medicine; Visit Provider Internal Medicine
DX: Z12.2 Encounter for screening for malignant neoplasm of respiratory organs (principal); Z87.891 Personal history of nicotine dependence
CPT/HCPCS: 71271

== ENCOUNTER 2024-04-24 09:49 | Outpatient (CLI) | payer MEDICARE, OTHER, SELFPAY ==
--- NOTE | ~2024-04-24 | XR_ITS ---
XR chest 2V Ordering provider: Ruthie Phillips, MUFFLER MECHANIC History: 69 years Male with . PERSISTENT COUGH X1MO . Comparison: None. FINDINGS: MEDIASTINUM: The cardiac silhouette is not enlarged. LUNGS: No infiltrates, effusions or pneumothorax. OTHER: No free air under the diaphragm. Degenerative changes of the spine. IMPRESSION: No acute cardiopulmonary pathology. Reviewed, dictated and finalized at location A. EFFICIENT AIRCRAFT DESIGNER
== END 2024-04-24 09:50 | disposition home or self-care (01) ==
PROVIDERS: PCP Internal Medicine; Visit Provider Nurse Practitioner Family
DX: R05.3 Chronic cough (principal)
CPT/HCPCS: 71046

== ENCOUNTER 2024-05-21 13:49 | Outpatient (CLI) | payer MEDICARE, OTHER, SELFPAY ==
--- NOTE | ~2024-05-21 | XR_ITS ---
XR sinus min 3V 05/21/2024 14:04 Indication: Chronic cough. Congestion. Procedure: 5 views paranasal sinuses Comparison: No prior studies for comparison. Findings: There is pneumatization of the paranasal sinuses. There is no air-fluid level. No nasal sep ajit deviation. Mastoids are pneumatized. Impression: 1: No significant abnormality of the paranasal sinuses. Reviewed, dictated and finalized at location B. ODITY MANAGER Impression: 1: No significant abnormality of the paranasal sinuses.
== END 2024-05-21 13:50 | disposition home or self-care (01) ==
LOC: CHSIMG 13:51
PROVIDERS: PCP Internal Medicine; Visit Provider Internal Medicine
DX: R05.9 Cough, unspecified (principal)
CPT/HCPCS: 70220

== ENCOUNTER 2024-05-22 09:19 | Outpatient (CLI) | payer MEDICARE, OTHER, SELFPAY | END 2024-05-22 09:20 | disposition home or self-care (01) | PROVIDERS: PCP Internal Medicine; Visit Provider Internal Medicine | DX: R05.3 Chronic cough (principal); R94.2 Abnormal results of pulmonary function studies | CPT/HCPCS: 94060; 94726; 94729 ==

== ENCOUNTER 2024-08-09 07:18 | Outpatient (CLI) | payer MEDICARE, OTHER, SELFPAY ==
--- NOTE | ~2024-08-09 | PE_ITS ---
EXAMINATION: PET_PETPSMAST_PT DATE: 08/09/2024 10:24 INDICATION: Stomach cancer TECHNIQUE: 5.436 mCi of Illucix Ga-[id number]) was administered i.v. Low dose computed rosalio graphy (CT) images were acquired from the base of the brain to the base of the brain to the proximal thighs for attenuation correction and anatomic localization. Positron emission tomography (PET) image s were acquired in the same distribution beginning 92 minutes after injection. Images including fused PET/CT images were reconstructed in axial, coronal, and sagittal planes. Automated exposure control technique was employed. The dose-length product was 1308.27mGy-cm. COMPARISON: None FINDINGS: Head/neck: Typical pattern of symmetric physiologic increased activity in the lacrimal, parotid and submandibula r glands as well as along the mucosa of the nasal and oral cavities, pharynx and hypopharynx. No path ologically enlarged cervical lymphadenopathy or suspicious foci of increased uptake in the visualized head or neck. Chest: Respiratory motion and mosaic attenuation in the lungs with dependent predominance consistent with mi ld atelectasis with subsegmental lucent regions of air trapping consistent with small airway disease. No suspicious pulmonary nodules, pneumonia, pulmonary edema or pleural effusion. Heart size is yissel l. No pericardial effusion. Vascular is normal in caliber. No pathologically enlarged PSMA avid thora cic lymphadenopathy. Abdomen/pelvis/proximal thighs: Physiologic renal accumulation and excretion of activity in the kidneys, bladder and along portions o f ureters. Status post prostatectomy with no evident abnormal soft tissue density at the prostatectom y bed on the CT imaging to suggest locally recurrent disease. Normal degree and slightly heterogenous pattern of increased uptake throughout the liver and spleen without radiologic correlate or dominant PSMA avid lesion. The gallbladder, pancreas and bilateral adrenal glands are normal. Moderate uptake scattered throughout the bowels with typical duodenal and proximal jejunal predominance and without radiologic correlate, also likely physiologic. Normal appendix. Moderate diverticulosis with descendi ng and sigmoid colon predominance without adjacent from trace stranding to suggest diverticulitis. Sm all bilateral fat-containing inguinal hernias. No other abnormal foci of increased uptake or patholog ically enlarged lymphadenopathy in the abdomen, pelvis or proximal thighs. Musculoskeletal: Moderate cervical, thoracic and lumbar spondylosis. No suspicious lytic, blastic or abnormally PSA ma y avid bone lesions. IMPRESSION: 1. Status post prostatectomy for reported prostate cancer with no evident residual, locally recurrent or metastatic disease. Reviewed, dictated and finalized at location B. IMPRESSION: 1. Status post prostatectomy for reported prostate cancer with no evident resid ual, locally recurrent or metastatic disease.
--- OUTSIDE RECORDS SUMMARY | 2024-08-09 07:24 | XMS_ITS | CONTINUITY OF CARE DOCUMENT ---
Author Name adrienne, adrienne Address Unknown Organization [facility] Office Address [address] [place] [address] Phone [phone] Care Team Providers Care Regional Sales Leader Name Role Phone Naomie Mathew MDammasatnam Unavailable [phone] CARO CURRY MD Unavailable CARO CURRY MD Unavailable PROBLEMS Condition Status Date Provider Notes Dizziness active Everton Muniz MD Bradycardia, sinus active Everton Muniz MD Erectile dysfunction active Everton Muniz MD ENCOUNTERS Date Type Provider Location Encounter Diag nosis - In-person encounter [facility] Visit [facility] Bradycardia, sinus - In-person encounter Office Visit [facility] DizzinessErectile dysfunction VITAL SIGNS Date Observation Value Provider blood pressure, diastolic 80 mm[Hg] Us robert Muniz MD blood pressure, systolic 146 mm[Hg] Savanah Muniz MD pulse rate 60 /min Everton Muniz MD oxygen saturation, oximetry 96 % Everton Muniz MD respiratory rate E&M 16 /min Everton nelson MD weight E&M 235 [lb_av] Everton Muniz MD blood pressure, diastolic, standing 98 mm [Hg] Everton Muniz MD blood pressure, systolic, standing 146 mm [Hg] Everton Muniz MD blood pressure, diastolic 94 mm[Hg] Us robert Muniz MD blood pressure, systolic 162 mm[Hg] Savanah Muniz MD pulse rate 60 /min Everton Muniz MD oxygen saturation, oximetry 96 % Everton Muniz MD respiratory rate E&M 20 /min Everton nelson MD weight E&M 240 [lb_av] Everton Muniz MD height E&M 73 [in_i] Everton Muniz MD ALLERGIES No Known Drug Allergies RESULTS Date Observation Value Provider Reference Range Interpretation Location LDL/HDL ratio, serum 1.8 [facility] cholesterol/HDL ratio, serum 2.9 [facility] triglyceride, serum, fasting 45 mg/dL J[facility] Bro[facility] HDL cholesterol, serum 71 mg/dL J[facility] Brody LDL cholesterol, serum 125 mg/dL Jc Brody cholesterol, serum 205 mg/dL J[facility] Brody platelet count 302 10*3/uL J[facility]dy hematocrit, blood 45.9 % J[facility] Brody alanine aminotransferase (SGPT), serum 48 1/L Jc Brody aspartate aminotransferase (SGOT), serum 26 1/L Jc Brody creatinine, serum 0.81 mg/dL Jc Brody potassium, serum 4.5 mmol/L Jc Brody sodium, serum 142 mmol/L Jc Brody HISTORY OF MEDICATION USE Medication Status Instructions Dates Provider Indications Com ments OCUVITE ORAL TABS active Everton nelson MD CVS MAGNESIUM TABLET active Everton Muniz MD VIAGRA 100 MG ORAL TABLET active prn Everton Muniz MD ASPIRIN 81 MG ORAL TABLET active ONE TAB. DAILY Everton Muniz MD SOCIAL HISTORY Date Observation Value Provider smoking/tobacco cess ation, patient education and counseling yes Everton Muniz MD social history reviewed E&M revi ewed - no changes required Everton Muniz MD social history E&M Patient is a former smoker. Smoking History: Zachary crump is a former smoker. Everton Muniz MD smoking status Former smoker Everton Muniz MD social history E&M Patient is a former smoker. Smoking History: Zachary crump is a former smoker. Everton Muniz MD smoking status Former smoker Everton Munzi MD FAMILY HISTORY Family Member Condition Father Negative FH of A S C V D INSURANCE PROVIDERS Payer name Policy type / Coverage type [employer] party ID [employer] [id number] TREATMENT PLAN Date Name Performer Follow-up faxed to luciano sheridan/pcp: H is updated medication list for this problem includes: Aspirin 81 Mg Tabs (Aspirin) ..... One tab. daily Everton Muniz MD Follow-up faxed to luciaon sheridan/pcp: H is updated medication list for this problem includes: Aspirin 81 Mg Tabs (Aspirin) ..... One tab. daily Everton Muniz MD Date Name Other Test Complete Echo STR - Routine
--- OUTSIDE RECORDS SUMMARY | 2024-08-09 07:24 | XMS_ITS | Clinical Summary ---
Author Organization [facility] Address [address] [place] [address] Care Team Providers Care Cigar Bander Name Role Phone Octavio Jenkins MD Primary Care Provider [phone] Allergies No known active allergies Medications No known medications Active Problems Problem Noted Date Diagnosed Date Lipoma of left upper extremity 02/03/2020 Family History Medical History Relation Comments No Known Problems Brother No Known Problems Father No Known Problems Maternal Grandfather No Known Problems Maternal Grandmother Hypertension Mother No Known Problems Paternal Grandfather No Known Problems Paternal Grandmother Cancer Sister Relation Status Comments Brother Alive Father Maternal Grandfather Maternal Grandmother Mother Paternal Grandfather Paternal Grandmother Sister Alive Social History Tobacco Use Types Packs/Day Years Used Date Smoking Tobacco: Former Cigarettes 2017 Smokeless Tobacco: Never Alcohol Use Standard Drinks/Week Comments Yes 0 (1 standard drink = 0.6 oz pur e alcohol) social AUDIT-C Answer Date Recorded Q1: How often do you have a drink containing alc ohol? 2-3 times a week 02/03/2020 Q2: How many drinks containi ng alcohol do you have on a typical day when you are drinking? 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 Gender Identity Male 11/29/2020 4:20 AM CDT Sexual Orientation Straight 11/29/2020 4: 20 AM CDT Last Filed Vital Signs Vital Sign Reading Time Taken Comments Blood Pressure 129/54 11/29/2020 7:45 AM CDT Pulse 70 11/29/2020 4:20 AM CDT Temperature 36.9 C (98.4 F) 11/29/2020 4:20 AM CDT Respiratory Rate 20 11/29/2020 4:20 AM CDT Oxygen Saturation 97% 11/29/2020 7:45 AM CDT Inhaled Oxygen Concentration - - Weight 96.2 kg (212 lb) 11/29/2020 4:20 AM CDT Height 185.4 cm (6' 1 ) 11/29/2020 4:20 AM CDT Body Mass Index 27.97 11/29/2020 4:20 AM CDT Plan of Treatment Health Maintenance Due Date Last Done Comments Colorectal Cancer Screening Colonoscopy (10 Years) 1953 Hepatitis C 1971 DTaP, Tdap and Td Vaccines ( 1 - Tdap) 01/28/1972 Zoster Vaccines (2 of 3) 12/09/2014 10/14/2014 Annual Medicare Wellness Visit 2018 Pneumococcal Vaccine: 65+ Ye ars (1 of 1 - PCV) 2018 COVID-19 Vaccine ( - 2023-2 5 season) 2024 Influenza Adult (#1) 2024 RSV Immunization or 60+ Years (1 - 1-dose 75+ series) 01/28/2028 Meningococcal B Vaccine Aged Out No l onger eligible based on patient's age to complete this topic Meningococcal Vaccine Aged Out No jessenia yashira eligible based on patient's age to complete this topic RSV Immunizations Under 20 Months Aged Out No longer eligible based on patient's age to complete this topic Insurance MEDICARE GENERIC - COMMERCIAL Care Teams Cigar Bander Relationship Specialty Start Date End Date Octavio Jenkins MD [address] [place] [id number] PCP - General INTERNAL MEDICINE 02/03/20
--- OUTSIDE RECORDS SUMMARY | 2024-08-09 07:24 | XMS_ITS | Encounter Summary ---
Author Organization [facility] Address [facility] [place] [address] Care Team Providers Care Loading Rack Supervisor Name Role Phone Octavio Jenkins MD Primary Care Provider [phone] Encounter Details Date Type Department Care Team (Late st Contact Info) Description 10/20/2018 Abstract SFL CONVERSION [address] [place] [address] , Generic Conversion, Social History Tobacco Use Types Packs/Day Years Used Date Smoking Tobacco: Never Assessed Sex and Gender Information Value Date Recorded Sex Assigned at Male 11/29/2020 4:20 AM CDT 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 Gender Identity Male 11/29/2020 4:20 AM CDT Sexual Orientation Straight 11/29/2020 4: 20 AM CDT documented as of this encounter Plan of Treatment Not on file documented as of this encounter Visit Diagnoses Not on filedocumented in this encounter Additional Health Concerns Infection Onset Date Last Indicated Resolved Time COVID-19 Rule Out 02/24/2020 02/24/2020 02/25/2020 9:36 PM CDT documented as of this encounter Care Teams Loading Rack Supervisor Relationship Specialty Start Date End Date Octavio Jenkins MD [address] [place] [id number] PCP - General INTERNAL MEDICINE 02/03/20 documented as of this encounter
== END 2024-08-09 07:19 | disposition home or self-care (01) ==
PROVIDERS: PCP Internal Medicine; Visit Provider Urology
DX: C61 Malignant neoplasm of prostate (principal)
CPT/HCPCS: 78815; A9596

== ENCOUNTER 2025-02-15 10:51 | Outpatient (CLI) | payer MEDICARE, OTHER, SELFPAY ==
[2025-02-15 11:36] LABS: Hematocrit 45.7 % (37.0-46.0); Hemoglobin 15.0 g/dL (12.4-15.3); Mean Corpuscular HGB Conc 32.8 g/dL (32-36); Mean Corpuscular Hemoglobin 29.2 pg (27.0-31.0); Mean Corpuscular Volume 89.1 fL (78.0-102.0); Platelet Count Result 320 K/mm3 (150-420); Red Blood Count 5.13 M/mm3 (4.70-6.10); White Blood Count 6.1 K/mm3 (4.8-10.8)
[2025-02-15 11:50] LABS: Add Urine Microscopic? NO; Appearance Urine Clear (Clear); Glucose Urine UA Negative (Negative); Leukocyte Esterase Ur Negative (Negative); Nitrate Urine Negative (Negative); Specific Grav Ur 1.015 (1.010-1.020)
[2025-02-15 11:51] LABS: Alanine Aminotransferase 34 U/L (6-50); Albumin Level 4.6 g/dL (3.5-5.1); Alkaline Phosphatase 54 U/L (38-126); Anion Gap 10 mmol/L (4-12); Aspartate Amino Transferase 33 U/L (17-59); Bilirubin,Total 1.3 mg/dL (0.2-1.3); Blood Urea Nitrogen 11 mg/dL (9-20); Calcium 9.5 mg/dL (8.4-10.2); Carbon Dioxide 28 mmol/L (22-30); Chloride 101 mmol/L (98-107); Cholesterol 183 mg/dL (0-200); Estimated Glomerular Filt Rate > 60; Glucose 84 mg/dL (65-110); HDL Direct 63 mg/dL; Osmolality Calculated 286 mOsm/kg (285-295); Potassium 4.6 mmol/L (3.4-5.0); Sodium 139 mmol/L (137-145); Total Protein 8.6 g/dL (6.3-8.2); Triglycerides 69 mg/dL (<150)
[2025-02-15 12:21] LABS: Thyroid Stimulating Hormone 0.950 uIU/mL (0.465-4.680)
== END 2025-02-15 10:52 | disposition home or self-care (01) ==
LOC: CHSLAB 10:53
PROVIDERS: PCP Internal Medicine; Visit Provider Internal Medicine
DX: J45.909 Unspecified asthma, uncomplicated (principal); E78.5 Hyperlipidemia, unspecified; Z68.28 Body mass index [BMI] 28.0-28.9, adult; R53.83 Other fatigue
CPT/HCPCS: 36415; 80053; 80061; 81003; 84443; 85027

== ENCOUNTER 2025-03-12 07:29 | Outpatient (CLI) | payer MEDICARE, OTHER, SELFPAY ==
[2025-03-12 08:50] LABS: Prostate Specific Antigen 0.2 ng/mL (< OR = 4.0)
== END 2025-03-12 07:30 | disposition home or self-care (01) ==
PROVIDERS: PCP Internal Medicine; Visit Provider Nurse Practitioner
DX: C61 Malignant neoplasm of prostate (principal)
CPT/HCPCS: 36415; 84153

== ENCOUNTER 2025-03-21 13:26 | Outpatient (CLI) | payer MEDICARE, OTHER, SELFPAY ==
--- NOTE | ~2025-03-21 | CT_ITS ---
EXAMINATION: CT lung screening DATE: 03/21/2025 13:38 INDICATION: Personal history of nicotine dependence TECHNIQUE: Computed tomography (CT) of the chest was performed without intravenous contrast. The dose-length product was 179.02 mGy-cm. Automated exposure control and iterative reconstruction technique were employed. COMPARISON: CT dated 03/18/2024 FINDINGS: Heart size normal. No thoracic lymphadenopathy. Minimal atherosclerosis of the coronary arteries. The upper abdomen is unremarkable. No significant pleural or pericardial effusion. There are miliary densities in the periphery of the right upper and lower lobes. No focal airspace consolidation. No pneumothorax. Mild emphysema. IMPRESSION: 1. New miliary nodules of the right upper and lower lobe. Differential diagnosis includes infection (i.e. miliary tuberculosis, fungal infection, viral pneumonitis), miliary metastases, lymphangitic carcinomatosis and inflammatory/granulomatous etiologies (i.e. sarcoidosis, hypersensitivity pneumonitis and pneumoconiosis). Recommend follow-up CT in 3 months. Reviewed, dictated and finalized at location O. LYST OPERATOR CHIEF IMPRESSION: 1. New miliary nodules of the right upper and lower lobe. Differential diagnosi s includes infection (i.e. miliary tuberculosis, fungal infection, viral pneumo nitis), miliary metastases, lymphangitic carcinomatosis and inflammatory/granul omatous etiologies (i.e. sarcoidosis, hypersensitivity pneumonitis and pneumoco niosis). Recommend follow-up CT in 3 months.
== END 2025-03-21 13:27 | disposition home or self-care (01) ==
LOC: CHSIMG 13:28
PROVIDERS: PCP Internal Medicine; Visit Provider Internal Medicine
DX: Z12.2 Encounter for screening for malignant neoplasm of respiratory organs (principal); Z87.891 Personal history of nicotine dependence; R91.8 Other nonspecific abnormal finding of lung field
CPT/HCPCS: 71271